=== PATIENT | female | born 1975 | race Caucasian/White ===

== ENCOUNTER 2018-02-02 14:16 | Emergency (ER) | payer MEDICAID ==
[~2018-02-02] VITALS: Ht 157.5 cm; Wt 79.8 kg
[2018-02-02 14:16] VITALS: BP_SYST 147
--- NOTE | 2018-02-02 14:16 | NUR ---
BROUGHT BACK TO BED #7 AND TRIAGED. REPORT GIVEN TO KINJAL
--- NOTE | 2018-02-02 15:00 | NUR ---
Patient to ER via triage for evaluation of dizziness x 2 days, patient also reports head spinning, hot sweats, vomiting, and feeling tired. Patient is awake, alert and oriented in no acute distress, vital signs stable, respirations even and unlabored, skin warm and dry to touch. Patient able to ambulate to bed 7 without difficulty, with slow, steady gait. Awaiting evaluation by ER MD, will continue to observe and assess. Patient denies pain at present.
--- NOTE | 2018-02-02 15:25 | NUR ---
Dr Olson at bedside to evaluate patient.
[2018-02-02 15:40] VITALS: BP_SYST 128
--- NOTE | 2018-02-02 15:40 | NUR ---
Patient given written and verbal discharge instructions and verbalizes understanding. ER MD discussed with patient the results and treatment provided. Patient in stable condition. ID arm band removed. Rx of Antivert given. Patient educated on pain management and to follow up with PMD. Pain Scale 0/10. Opportunity for questions provided and answered. Medication side effect fact sheet provided.
[2018-02-02] MEDS ORDERED: MECLIZINE HCL 25 MG TABLET (ANITVERT) PO ONE (15:45)
== END 2018-02-02 15:40 | disposition home or self-care (01) ==
LOC: SED 14:16
DX: R42 Dizziness and giddiness (principal); R03.0 Elevated blood-pressure reading, without diagnosis of hypertension
CPT/HCPCS: 93005; 99283; J8597